=== PATIENT | male | born 1955 | race Caucasian/White ===

== ENCOUNTER 2019-07-14 08:50 | Day surgery (SDC) ==
--- NOTE | 2019-07-13 15:03 | EKG Report ---
Test Performed on : 07/13/2019 2:06:06 PM Test Reason : pat Blood Pressure : / mmHG Vent. Rate : 077 BPM Atrial Rate : 077 BPM P-R Int : 142 ms QRS Dur : 096 ms QT Int : 354 ms P-R-T Axes : 045 026 024 degrees QTc Int : 400 ms Normal sinus rhythm. Normal ECG No previous ECGs available Confirmed by Shyann Jeong MD ([id number]) on 07/13/2019 4:24:55 PM
[2019-07-14] MEDS ORDERED: PEPCID ONE (09:18)
[2019-07-14] MEDS ORDERED: TRANSDERM-SCOP ONE ×2 (09:18→11:00)
[2019-07-14] MEDS ORDERED: CLINDAMYCIN 900 MG/D5W 900 MG/50 ML IVPB ONE (09:18)
[2019-07-14] MEDS ORDERED: REGLAN ONE (09:18)
[2019-07-14] MEDS ORDERED: LR 1,000 ML ONE ×2 (09:18→11:53)
[2019-07-14] MEDS ORDERED: XYLOCAINE-MPF 2% ONE (09:53)
[2019-07-14] MEDS ORDERED: DIPRIVAN 1% ONE (09:53)
[2019-07-14] MEDS ORDERED: VERSED ONE (09:53)
[2019-07-14] MEDS ORDERED: QUELICIN (DOSE) ONE (09:54)
[2019-07-14] MEDS ORDERED: ZEMURON ONE (09:54)
[2019-07-14] MEDS ORDERED: NAROPIN 0.2% ONE (10:24)
[2019-07-14] MEDS ORDERED: XYLOCAINE 1%/EPI 1:100,000 ONE (10:24)
[2019-07-14] MEDS ORDERED: SODIUM CHLORIDE 0.9% 20 ML ONE (10:29)
[2019-07-14] MEDS ORDERED: PRECEDEX ONE (10:32)
[2019-07-14] MEDS ORDERED: ZOFRAN ONE (11:15)
[2019-07-14] MEDS ORDERED: DECADRON ONE (11:15)
[2019-07-14] MEDS ORDERED: ROBINUL ONE (11:19)
[2019-07-14] MEDS ORDERED: NEOSTIGMINE ONE (11:19)
--- NOTE | 2019-07-14 12:23 | OPERATIVE NOTE ---
PROCEDURE DATE: 07/14/2019 PREOPERATIVE DIAGNOSIS: Obstructive sleep apnea. POSTOPERATIVE DIAGNOSIS: Obstructive sleep apnea. PROCEDURE PERFORMED: 1. Tonsillectomy. 2. Uvulopalatopharyngoplasty. COMPLICATIONS: No complications. ANESTHESIA: General with endotracheal intubation. DESCRIPTION OF PROCEDURE: The patient was identified and consented. Options were reviewed. He was brought to the operating room and placed in a supine position where general anesthesia was induced with endotracheal intubation. The McIvor mouth gag was introduced. The right tonsil was grasped with a curved Allis clamp. Medial traction was applied. Anterior mucosal incision was performed through which a capsule dissection facilitated removal of the fairly large endomorphic tonsil. Meticulous attention was paid to preservation of the anterior and posterior tonsil pillar musculature, as well as removal of the entire tonsil tissue, and hemostasis using electrocautery. The palate and uvula were then trimmed along the anterior mucosal surface connecting the superior arch of one tonsil fossa to the other after the contralateral tonsillectomy was performed as described above. The palate was then transected through the base of the uvula to the posterior palate mucosa on the bevel. The mucosa of the posterior aspect was rolled up and connected to the mucosal surface of the anterior palate with simple interrupted 4-0 and 3-0 Vicryl stitches from the top of one tonsil across to the top of the other tonsil. The patient tolerated the procedure well. Ropivacaine was injected into the tonsil fossa and the palatal mucosal edges bilaterally. He was allowed to recover from anesthesia. Throat was irrigated and suctioned. He was extubated and transferred to the recovery room in stable condition. cc: Amol Cristina MD
[2019-07-14] MEDS ORDERED: DILAUDID ONE (12:30)
[2019-07-14] MEDS ORDERED: BLISTEX MEDICATED BERRY LIP BALM TOP PRN (13:16)
[2019-07-14] MEDS: TYLENOL LIQUID PO PRN ×3 (14:11→22:32)
[2019-07-14] MEDS: OXYCODONE PO PRN ×3 (14:11→22:34)
[2019-07-14] MEDS: LR 1,000 ML IV SCH (16:00)
[2019-07-14] MEDS ORDERED: APRESOLINE IV PRN ×2 (16:37→16:38)
--- NOTE | 2019-07-14 17:04 | CONSULTATION ---
DATE OF CONSULTATION: 07/14/2019 HISTORY OF PRESENT ILLNESS: He had a UP3 procedure for sleep apnea. He had it this morning per Dr. Emanuel Cristina. PAST MEDICAL HISTORY: He has had lymphoma diagnosed in 2010, follicular lymphoma and it is in remission. It has been remission for the last 7 years. He has also had an umbilical hernia repair I think x2. Really no other medical issues. He has gone through a cystoscopy before. I think he has had some complaints of gastroesophageal reflux. ALLERGIES: Penicillin which causes skin welts. SOCIAL HISTORY: He is . Primary care physician Dr. Star Pollock. He works for [employer]. Lives in [place]. REVIEW OF SYSTEMS: General: No weight gain or loss. No fever or chills. HEENT: Unremarkable other than his sleep apnea. Respiratory: Sleep apnea. Otherwise no history of pulmonary issues. Cardiovascular: No chest pain or tachy palpitation. GI/: No gross hematuria or dysuria. Musculoskeletal/Neurologic: No complaints. Endocrinologic/Hematologic: No significant history. FAMILY HISTORY: No history of cardiac, respiratory, or renal issues. There is a history of diabetes. PHYSICAL EXAMINATION: Vital Signs: Temperature 98.4 degrees, pulse 89, respirations 16, blood pressure 130/91. Weight 221 pounds. HEENT: Pupils are equal and round. Oral and nasal mucosa irritated. Can open his mouth. No trouble swallowing at this point. No sinus tenderness. Neck: No cervical adenopathy. Neck is supple. Lungs: Clear in all lung pelaez. Cardiovascular: Regular rhythm and rate without murmur or S3. Abdomen: Soft. Skin: Warm and dry. ASSESSMENT AND PLAN: Status post uvulopalatopharyngoplasty 3. He is stable, breathing comfortably. I think it would be appropriate to check and see a basic metabolic profile with magnesium and CBC and we can check that in the morning. Continue his present fluids. I do not see any other issues. REVIEW OF HIS MEDICATIONS/ORDERS: He is on Zyrtec 10 mg a day, vitamin D 1000 mg daily, Decadron 4 mg IV q.8, Apresoline 10 mg IV q.4 hours p.r.n. He is on lactated Ringer's 125 mg a day. He is getting oxycodone 10 mg q.4 hours p.r.n. cc: Dontae Davis MD
[2019-07-14] MEDS: DECADRON IV SCH (18:17)
[2019-07-15] MEDS: LR 1,000 ML IV SCH ×2 (03:51→08:08)
[2019-07-15] MEDS: TYLENOL LIQUID PO PRN (03:54)
[2019-07-15] MEDS: DECADRON IV SCH (03:54)
[2019-07-15] MEDS: OXYCODONE PO PRN (03:55)
[2019-07-15 07:15] LABS: BASO# 0.01 X1000 (0.0-0.2); BASO% 0.1 % (0.0-0.8); HEMATOCRIT 48.5 % (42.0-52.0); HEMOGLOBIN 16.3 g/dL (14.0-18.0); IMM GRAN# 0.06 X1000 (0.0-0.04); IMM GRAN% 0.4 % (0.0-0.5); LYMPH# 0.76 X1000 (1.2-3.4); LYMPH% 4.5 % (20.5-51.1); MCH 27.5 PG (27-31); MCHC 33.6 g/dL (33-37); MCV 81.9 FL (81-99); MONO# 0.97 X1000 (0.11-0.59); MONO% 5.7 % (1.7-9.3); MPV 9.7 FL (7.4-10.4); NEUT# 15.15 X1000 (1.4-6.5); NEUT% 89.3 % (42.2-75.2); PLT 215 X1000 (130-400); RBC 5.92 XMIL (4.7-6.1); RDW 15.2 % (11.5-14.5); WBC 16.95 X1000 (4.8-10.8)
[2019-07-15 07:59] LABS: BANDS 3 % (0-1); LYMPHS 4 % (21-51); MONO 4 % (1-9); SEGS 89 % (42-75)
[2019-07-15] MEDS ORDERED: ZYRTEC PO SCH (09:00)
[2019-07-15] MEDS ORDERED: VITAMIN D PO SCH (09:00)
[2019-07-15 09:18] VITALS: BP 129/87
[2019-07-15 09:41] LABS: CREATININE 1.3 mg/dL (0.7-1.2)
== END 2019-07-15 09:05 | disposition home or self-care (01) ==
LOC: PAT 08:50 → ICU 08:50 → OPS 08:50
PROVIDERS: ATTEND Otolaryngology Otolaryngology/Facial Plastic Surgery
PROC: [UNRECOGNIZED PROCEDURE] (2019-07-14 10:55)